=== PATIENT | male | born 1960 | race Caucasian/White ===

== ENCOUNTER → 2016-10-28 | Outpatient (CLI) | payer BC, OTHER ==
[2016-10-28 08:41] LABS: CHLORIDE,CL 104 mmol/L (98-110); SODIUM,NA 142 mmol/L (136-146)
== END | disposition home or self-care (01) ==
LOC: MW.CHFP 07:46
PROVIDERS: ATTEND Student in an Organized Health Care Education/Training Program
DX: R73.9 Hyperglycemia, unspecified (principal); I10 Essential (primary) hypertension; E78.00 Pure hypercholesterolemia, unspecified
CPT/HCPCS: 36415; 80053; 80061

== ENCOUNTER 2017-01-17 08:18 | Day surgery (SDC) | payer OTHER ==
[~2017-01-17 08:18] MED LIST: Lactated Ringers 1,000 ML IV SCH
--- NOTE | 2017-01-17 08:54 | PCM.PREANE ---
Preanesthetic Assessment - Anesthesia/Transfusion/Family Hx Anesthesia History: Prior Anesthesia Without Reaction Family History of Anesthesia Reaction: No Transfusion History: No Prior Transfusion(s) Intubation History: Unknown - Review of Systems General: No Symptoms Pulmonary: No Symptoms Cardiovascular: No Symptoms Gastrointestinal: Constipation, Other (screening colonoscopy) Neurological: No Symptoms Other: Reports: None - Physical Assessment Height: 1.77 m Weight: 124.284 kg ASA Class: 2 Mental Status: Alert & Oriented x3 Airway Class: Mallampati = 2 Dentition: Reports: Normal Dentition Thyro-Mental Finger Breadths: 2 Mouth Opening Finger Breadths: 3 ROM/Head Extension: Full Lungs: Clear to Auscultation, Normal Respiratory Effort Cardiovascular: Regular Rate, Regular Rhythm - Allergies Allergies/Adverse Reactions: Allergies Allergy/AdvReac Type Severity Reaction Status Date / Time No Known Allergies Allergy Verified 11/24/14 18:36 - Blood Blood Available: No - Anesthesia Plan Pre-Op Medication Ordered: None - Acknowledgements Anesthesia Type Planned: MAC Pt an Appropriate Candidate for the Planned Anesthesia: Yes Alternatives and Risks of Anesthesia Discussed w Pt/Guardian: Yes Pt/Guardian Understands and Agrees with Anesthesia Plan: Yes PreAnesthesia Questionnaire HEENT History: Reports: Other (See Below) Other HEENT History: chronic sinus drainage Cardiovascular History: Reports: High Cholesterol, Hypertension Psychiatric History: Reports: Anxiety, Depression Endocrine/Metabolic History: Reports: Obesity/BMI 30+ - Past Surgical History Head Surgeries/Procedures: Reports: None HEENT Surgical History: Reports: Oral Surgery, Tonsillectomy - SUBSTANCE USE Smoking Status *Q: Never Smoker Second Hand Smoke Exposure: Yes Days Per Week of Alcohol Use: 0 Recreational Drug Use History: No - HOME MEDS Home Medications: Home Meds Hydrochlorothiazide 25 mg PO DAILY 11/24/14 [History] Metoprolol Succinate [Toprol XL] 25 mg PO DAILY 11/24/14 [History] amLODIPine [Norvasc] 10 mg PO DAILY 11/24/14 [History] atorvaSTATin [Lipitor] 20 mg PO BEDTIME 11/24/14 [History] [place]-3S/DHA/Epa/Fish Oil [Fish Oil Dr 1,000 mg Softgel] 1 tab PO DAILY [History] - CURRENT (IN HOUSE) MEDS Current Meds: Current Medications Lactated Ringer's (Ringers, Lactated) 1,000 mls @ 125 mls/hr IV ASDIRECTED AMA Last Admin: 01/17/17 08:40 Dose: 125 mls/hr
[2017-01-17] MEDS ORDERED: Midazolam 1 MG/ML 2 ML SDV ONE (09:33)
[2017-01-17] MEDS ORDERED: Propofol 200 MG/20 ML SDV ONE ×2 (09:33→09:45)
[2017-01-17] MEDS ORDERED: fentaNYL 100 MCG/2 ML SDV ONE (09:59)
--- NOTE | 2017-01-17 10:49 | PCM.OPNOTE ---
- General Post-Op/Procedure Note Date of Surgery/Procedure: 01/17/17 Operative Procedure(s): Colonoscopy Pre Op Diagnosis: Desire for colorectal cancer screening Post-Op Diagnosis: No evidence of neoplasia Anesthesia Technique: MAC (ASA II) Primary Surgeon: Al Aldana Condition: Good Free Text/Narrative:: Dictation [id number] CPT CODE [id number]
--- NOTE | 2017-01-17 10:56 | PCM.POSTAN ---
POST ANESTHESIA ASSESSMENT - MENTAL STATUS Mental Status: Alert - RESPIRATORY Respiratory Status: respiratory rate WNL, Airway Patent, O2 Saturation Stable - CARDIOVASCULAR CV Status: Pulse Rate WNL, Blood Pressure Stable - GASTROINTESTINAL GI Status: No Symptoms - PAIN Pain Score: 0 - POST OP HYDRATION Hydration Status: Adequate & Stable - OBSERVATIONS Free Text/Narrative:: no anesthesia problems
[2017-01-17] MEDS ORDERED: Lactated Ringers 1,000 ML IV SCH (11:00)
[2017-01-17 11:33] VITALS: BP 115/79
--- NOTE | 2017-01-17 12:00 | OR ---
SURGEON: Al Aldana M.D. DATE OF PROCEDURE: 01/17/2017 OPERATION PERFORMED: Colonoscopy. ANESTHESIA: MAC. ASA CLASSIFICATION: II. PREOPERATIVE DIAGNOSIS: Desire for colorectal cancer screening. POSTOPERATIVE DIAGNOSIS: No evidence of neoplasia. DESCRIPTION OF PROCEDURE: The patient was taken to the endoscopy room and positioned on the endoscopy table in the left lateral decubitus position. Time-out was called for appropriate identification of the patient and procedure. Monitored anesthesia care was provided. The colonoscope was inserted into the rectum and advanced with moderate difficulty to the cecum. The cecum was identified by internal landmarks and external pressure. The colonoscope was retroflexed in the cecum to visualize the ascending colon from below, then straightened, and slowly withdrawn. The cecum, ascending colon, hepatic flexure, transverse colon, splenic flexure, descending colon, sigmoid colon, and rectum were very well visualized. No tumors, polyps, diverticula, or angiodysplastic changes were noted. There was no evidence of inflammatory bowel disease. Once the colonoscope was withdrawn to the rectum, it was retroflexed to visualize the anal orifice from above. No tumors, polyps, or acute hemorrhoidal changes were noted. The colonoscope was then straightened, the rectum aspirated, and the colonoscope removed. The patient tolerated the procedure well and was taken to recovery room in stable condition. BECCA RODRÍGUEZ /[id number]
== END 2017-01-17 11:20 | disposition home or self-care (01) ==
LOC: MW.SDS 08:18
PROVIDERS: ATTEND Surgery
PROC: 0DJD8ZZ Inspection of Lower Intestinal Tract, Via Natural or Artificial Opening Endoscopic (ICD-10-PCS; principal; 2017-01-17)
DX: Z12.11 Encounter for screening for malignant neoplasm of colon (principal); R53.82 Chronic fatigue, unspecified; I10 Essential (primary) hypertension; E78.00 Pure hypercholesterolemia, unspecified; E66.01 Morbid (severe) obesity due to excess calories; Z79.899 Other long term (current) drug therapy; Z68.41 Body mass index [BMI] 40.0-44.9, adult; Z90.89 Acquired absence of other organs; Z98.890 Other specified postprocedural states
CPT/HCPCS: 45378; J2250; J3010; J7120; 00810; J2704

== ENCOUNTER 2017-07-11 17:44 | Emergency (ER) | payer SELFPAY ==
--- NOTE | 2017-07-11 18:00 | EDM.PDOC ---
ED HPI GENERAL MEDICAL PROBLEM - General Chief Complaint: ENT Problem Stated Complaint: TOOTHACHE Time Seen by Provider: 07/11/17 17:50 - History of Present Illness INITIAL COMMENTS - FREE TEXT/NARRATIVE: HISTORY AND PHYSICAL: History of present illness: Patient's 57-year-old white male sensory concern of dental pain he is scheduled have 2 teeth extracted on Mondays currently on Augmentin and ibuprofen he denies fever chills nausea vomiting or other complaints Review of systems: As per history of present illness and below otherwise all systems reviewed and negative. Past medical history: As per history of present illness and as reviewed below otherwise noncontributory. Surgical history: As per history of present illness and as reviewed below otherwise noncontributory. Social history: No reported history of drug or alcohol abuse. Family history: As per history of present illness and as reviewed below otherwise noncontributory. Physical exam: HEENT: Atraumatic, normocephalic, pupils reactive, negative for conjunctival pallor or scleral icterus, mucous membranes moist, throat clear, neck supple, nontender, trachea midline. Generally poor dentition multiple dental caries with secondary dental fractures noted he's got some right left lower swelling in the region of the mandible Lungs: Clear to auscultation, breath sounds equal bilaterally, chest nontender. Heart: S1S2, regular, negative for clicks, rubs, or JVD. Abdomen: Soft, nondistended, nontender. Negative for masses or hepatosplenomegaly. Negative for costovertebral tenderness. Pelvis: Stable nontender. Genitourinary: Deferred. Rectal: Deferred. Extremities: Atraumatic, negative for cords or calf pain. Neurovascular unremarkable. Neuro: Awake, alert, oriented. Cranial nerves II through XII unremarkable. Cerebellum unremarkable. Motor and sensory unremarkable throughout. Exam nonfocal. Diagnostics: None Therapeutics: dental balls Impression: #1 dentalgia #2 multiple dental caries #3 dental abscess Definitive disposition and diagnosis as appropriate pending reevaluation and review of above. - Related Data Allergies Allergy/AdvReac Type Severity Reaction Status Date / Time No Known Allergies Allergy Verified 07/11/17 17:59 Home Meds: Home Meds Hydrochlorothiazide 25 mg PO DAILY 11/24/14 [History] Metoprolol Succinate [Toprol XL] 25 mg PO DAILY 11/24/14 [History] amLODIPine [Norvasc] 10 mg PO DAILY 11/24/14 [History] atorvaSTATin [Lipitor] 20 mg PO BEDTIME 11/24/14 [History] [place]-3S/DHA/Epa/Fish Oil [Fish Oil Dr 1,000 mg Softgel] 1 tab PO DAILY [History] Amoxicillin/Potassium Clav [Augmentin 875-125 Tablet] 07/11/17 [History] Ibuprofen 07/11/17 [History] Water Pill 07/11/17 [History] Past Medical History HEENT History: Reports: Other (See Below) Other HEENT History: chronic sinus drainage Cardiovascular History: Reports: High Cholesterol, Hypertension Psychiatric History: Reports: Anxiety, Depression Endocrine/Metabolic History: Reports: Obesity/BMI 30+ - Past Surgical History Head Surgeries/Procedures: Reports: None HEENT Surgical History: Reports: Oral Surgery, Tonsillectomy Social & Family History - Tobacco Use Smoking Status *Q: Never Smoker Second Hand Smoke Exposure: Yes - Caffeine Use Caffeine Use: Reports: Soda - Alcohol Use Days Per Week of Alcohol Use: 0 - Recreational Drug Use Recreational Drug Use: No ED ROS GENERAL - Review of Systems Review Of Systems: ROS reveals no pertinent complaints other than HPI. ED EXAM, GENERAL - Physical Exam Exam: See Below (See dictation) Departure - Departure Time of Disposition: 17:59 Disposition: Home, Self-Care 01 Condition: Good Clinical Impression: Dentalgia, Dental caries - Discharge Information Referrals: Sean Myles MD [Primary Care Provider] - Additional Instructions: The following information is given to patients seen in the emergency department who are being discharged to home. This information is to outline your options for follow-up care. We provide all patients seen in our emergency department with a follow-up referral. The need for follow-up, as well as the timing and circumstances, are variable depending upon the specifics of your emergency department visit. If you don't have a primary care physician on staff, we will provide you with a referral. We always advise you to contact your personal physician following an emergency department visit to inform them of the circumstance of the visit and for follow-up with them and/or the need for any referrals to a consulting specialist. The emergency department will also refer you to a specialist when appropriate. This referral assures that you have the opportunity for followup care with a specialist. All of these measure are taken in an effort to provide you with optimal care, which includes your followup. Under all circumstances we always encourage you to contact your private physician who remains a resource for coordinating your care. When calling for followup care, please make the office aware that this follow-up is from your recent emergency room visit. If for any reason you are refused follow-up, please contact the [facility] emergency department at and asked to speak to the emergency department charge nurse. Continue Augmentin and Motrin as prescribed dental balls as directed Ultram as prescribed keep scheduled dentist appointment return as needed as discussed
[2017-07-11] MEDS ORDERED: Benzocaine 20% Topical Spray UD MUCMEM ONE (18:05)
[2017-07-11] MEDS ORDERED: Lidocaine 2% Viscous Solution 15 ML Cup PO ONE (18:05)
[2017-07-11 18:57] VITALS: BP 167/89
== END 2017-07-11 18:06 | disposition home or self-care (01) ==
LOC: MW.ED 17:44
DX: K04.7 Periapical abscess without sinus (principal); K03.81 Cracked tooth; K02.9 Dental caries, unspecified; I10 Essential (primary) hypertension; E78.00 Pure hypercholesterolemia, unspecified; F32.9 Major depressive disorder, single episode, unspecified; Z77.22 Contact with and (suspected) exposure to environmental tobacco smoke (acute) (chronic); Z79.899 Other long term (current) drug therapy
CPT/HCPCS: 99283; A9270

== ENCOUNTER 2017-11-14 01:50 | Emergency (ER) | payer OTHER ==
--- NOTE | 2017-11-14 01:55 | EDM.PDOC ---
ED HPI GENERAL MEDICAL PROBLEM - General Chief Complaint: Chest Pain Stated Complaint: CHEST PAIN Time Seen by Provider: 11/14/17 01:53 Source of Information: Reports: Patient - History of Present Illness INITIAL COMMENTS - FREE TEXT/NARRATIVE: HISTORY AND PHYSICAL: History of present illness: Patient presents by private vehicle [ Patient presents with complaint of back and shoulder pain 10 out of 10 but awoke him from sleep or developed shortly after waking up tonight no radiation arm neck or jaw not associated with shortness breath or diaphoresis. Pain is worsened with left arm movement and turning his head, I can reproduce symptoms with forward extension of his arm No fever nausea vomiting chills sweats no shortness breath headache dizziness or palpitation no bowel or urine symptoms History of hypertension Review of systems: As per history of present illness and below otherwise all systems reviewed and negative. Past medical history: As per history of present illness and as reviewed below otherwise noncontributory. Surgical history: As per history of present illness and as reviewed below otherwise noncontributory. Social history: No reported history of drug or alcohol abuse. Family history: As per history of present illness and as reviewed below otherwise noncontributory. Physical exam: HEENT: Atraumatic, normocephalic, pupils reactive, negative for conjunctival pallor or scleral icterus, mucous membranes moist, throat clear, neck supple, nontender, trachea midline. Lungs: Clear to auscultation, breath sounds equal bilaterally, chest nontender. Heart: S1S2, regular, negative for clicks, rubs, or JVD. Abdomen: Soft, nondistended, nontender. Negative for masses or hepatosplenomegaly. Negative for costovertebral tenderness. Pelvis: Stable nontender. Genitourinary: Deferred. Rectal: Deferred. Extremities: Atraumatic, negative for cords or calf pain. Neurovascular unremarkable. Neuro: Awake, alert, oriented. Cranial nerves II through XII unremarkable. Cerebellum unremarkable. Motor and sensory unremarkable throughout. Exam nonfocal. Diagnostics: [CBC CMP UA INR troponin lipase EKG Chest 1 view] Therapeutics: [1 L normal saline bolus Aspirin 324 mg chewable-patient had taken 4 to 5--3/25 milligram aspirin prior to arrival hence the 324 mg chewable or not provided ] Lopressor 5 mg IV Nitroglycerin 0.4 sublingualEvery 5 minutes when necessary-not provided as patient has 0 out of 10 chest pain Patient is offered observation admission for telemetry and following cardiac enzymes he refuses stating he does not want to spend the money on an admission Impression: [a typical chest pain Muscle spasm] Definitive disposition and diagnosis as appropriate pending reevaluation and review of above. Chest Pain Score (Numeric/FACES): 10 - Related Data Allergies Allergy/AdvReac Type Severity Reaction Status Date / Time No Known Allergies Allergy Verified 11/14/17 01:56 Home Meds: Home Meds Hydrochlorothiazide 25 mg PO DAILY 11/24/14 [History] Metoprolol Succinate [Toprol XL] 25 mg PO DAILY 11/24/14 [History] amLODIPine [Norvasc] 10 mg PO DAILY 11/24/14 [History] atorvaSTATin [Lipitor] 20 mg PO BEDTIME 11/24/14 [History] Water Pill 07/11/17 [History] Acetaminophen 1,000 mg PO DAILY 11/14/17 [History] Past Medical History HEENT History: Reports: Other (See Below) Other HEENT History: chronic sinus drainage Cardiovascular History: Reports: High Cholesterol, Hypertension Psychiatric History: Reports: Anxiety, Depression Endocrine/Metabolic History: Reports: Obesity/BMI 30+ - Past Surgical History Head Surgeries/Procedures: Reports: None HEENT Surgical History: Reports: Oral Surgery, Tonsillectomy Social & Family History - Family History Family Medical History: Noncontributory - Caffeine Use Caffeine Use: Reports: Soda ED ROS GENERAL - Review of Systems Review Of Systems: See Below ED EXAM, GENERAL - Physical Exam Exam: See Below Course - Vital Signs Last Recorded V/S: Last Vital Signs Temp 97.9 F 11/14/17 02:00 Pulse 77 11/14/17 02:29 Resp 18 11/14/17 02:00 BP 157/93 H 11/14/17 02:29 Pulse Ox 94 L 11/14/17 02:29 - Orders/Labs/Meds Orders: Active Orders 24 hr Category Date Time Status EKG Documentation Completion [RC] STAT Care 11/14/17 02:08 Active Chest 1V Frontal [CR] Stat Exams 11/14/17 02:08 Taken UA W/MICROSCOPIC [URIN] Stat Lab 11/14/17 02:07 Ordered Nitroglycerin [Nitrostat] Med 11/14/17 01:57 Active 0.4 mg SL Q5M PRN Sodium Chloride 0.9% [Normal Saline] 1,000 ml Med 11/14/17 01:56 Active IV STAT Medication Orders Sodium Chloride (Normal Saline) 1,000 mls @ 999 mls/hr IV STAT ONE Stop: 11/14/17 02:56 Last Admin: 11/14/17 02:20 Dose: 999 mls/hr Nitroglycerin (Nitrostat) 0.4 mg SL Q5M PRN PRN Reason: Chest Pain Labs: Laboratory Tests 11/14/17 11/14/17 11/14/17 Range/Units 02:06 02:06 02:06 WBC 9.29 (4.0-11.0) K/uL RBC 4.95 (4.50-5.90) M/uL Hgb 15.9 (13.0-17.0) g/dL Hct 45.6 (38.0-50.0) % MCV 92.1 (80.0-98.0) fL MCH 32.1 H (27.0-32.0) pg MCHC 34.9 (31.0-37.0) g/dL RDW Std Deviation 46.6 (28.0-62.0) fl RDW Coeff of Judah 14 (11.0-15.0) % Plt Count 286 (150-400) K/uL MPV 10.50 (7.40-12.00) fL Neut % (Auto) 58.6 (48.0-80.0) % Lymph % (Auto) 28.2 (16.0-40.0) % [place] % (Auto) 11.0 (0.0-15.0) % Eos % (Auto) 2.0 (0.0-7.0) % Baso % (Auto) 0.2 (0.0-1.5) % Neut # (Auto) 5.4 (1.4-5.7) K/uL Lymph # (Auto) 2.6 H (0.6-2.4) K/uL [place] # (Auto) 1.0 H (0.0-0.8) K/uL Eos # (Auto) 0.2 (0.0-0.7) K/uL Baso # (Auto) 0.0 (0.0-0.1) K/uL Nucleated RBC % 0.0 /100WBC Nucleated RBCs # 0 K/uL INR 0.99 Sodium 142 (136-148) mmol/L Potassium 3.1 L (3.5-5.1) mmol/L Chloride 105 (98-107) mmol/L Carbon Dioxide 32.5 H (21.0-32.0) mmol/L BUN 14 (7.0-18.0) mg/dL Creatinine 1.3 (0.8-1.3) mg/dL Est Cr Clr Drug Dosing 57.26 mL/min Estimated GFR (MDRD) 57.1 ml/min Glucose 103 (74-106) mg/dL Calcium 9.1 (8.5-10.1) mg/dL Total Bilirubin 0.5 (0.2-1.0) mg/dL AST 26 (15-37) IU/L ALT 37 (14-63) IU/L Alkaline Phosphatase 89 (46-116) U/L Troponin I < 0.050 (0.000-0.056) ng/mL Total Protein 7.7 (6.4-8.2) g/dL Albumin 3.8 (3.4-5.0) g/dL Globulin 3.9 H (2.0-3.5) g/dL Albumin/Globulin Ratio 1.0 L (1.3-2.8) Lipase 229 (73-393) U/L Urine Color Urine Appearance Urine pH (5.0-8.0) Ur Specific [place] (1.001-1.035) Urine Protein (NEGATIVE) mg/dL Urine Glucose (UA) (NEGATIVE) mg/dL Urine Ketones (NEGATIVE) mg/dL Urine Occult Blood (NEGATIVE) Urine Nitrite (NEGATIVE) Urine Bilirubin (NEGATIVE) Urine Urobilinogen (<2.0) EU/dL Ur Leukocyte Esterase (NEGATIVE) Urine RBC (0-2/HPF) Urine WBC (0-5/HPF) Ur Epithelial Cells (NONE-FEW) Amorphous Sediment (NEGATIVE) Urine Bacteria (NEGATIVE) 11/14/17 Range/Units 02:07 WBC (4.0-11.0) K/uL RBC (4.50-5.90) M/uL Hgb (13.0-17.0) g/dL Hct (38.0-50.0) % MCV (80.0-98.0) fL MCH (27.0-32.0) pg MCHC (31.0-37.0) g/dL RDW Std Deviation (28.0-62.0) fl RDW Coeff of [place] (11.0-15.0) % Plt Count (150-400) K/uL MPV (7.40-12.00) fL Neut % (Auto) (48.0-80.0) % Lymph % (Auto) (16.0-40.0) % [place] % (Auto) (0.0-15.0) % Eos % (Auto) (0.0-7.0) % Baso % (Auto) (0.0-1.5) % Neut # (Auto) (1.4-5.7) K/uL Lymph # (Auto) (0.6-2.4) K/uL [place] # (Auto) (0.0-0.8) K/uL Eos # (Auto) (0.0-0.7) K/uL Baso # (Auto) (0.0-0.1) K/uL Nucleated RBC % /100WBC Nucleated RBCs # K/uL INR Sodium (136-148) mmol/L Potassium (3.5-5.1) mmol/L Chloride (98-107) mmol/L Carbon Dioxide (21.0-32.0) mmol/L BUN (7.0-18.0) mg/dL Creatinine (0.8-1.3) mg/dL Est Cr Clr Drug Dosing mL/min Estimated GFR (MDRD) ml/min Glucose (74-106) mg/dL Calcium (8.5-10.1) mg/dL Total Bilirubin (0.2-1.0) mg/dL AST (15-37) IU/L ALT (14-63) IU/L Alkaline Phosphatase (46-116) U/L Troponin I (0.000-0.056) ng/mL Total Protein (6.4-8.2) g/dL Albumin (3.4-5.0) g/dL Globulin (2.0-3.5) g/dL Albumin/Globulin Ratio (1.3-2.8) Lipase (73-393) U/L Urine Color YELLOW Urine Appearance SLT CLOUDY Urine pH 7.0 (5.0-8.0) Ur Specific [place] 1.010 (1.001-1.035) Urine Protein NEGATIVE (NEGATIVE) mg/dL Urine Glucose (UA) NEGATIVE (NEGATIVE) mg/dL Urine Ketones NEGATIVE (NEGATIVE) mg/dL Urine Occult Blood NEGATIVE (NEGATIVE) Urine Nitrite NEGATIVE (NEGATIVE) Urine Bilirubin NEGATIVE (NEGATIVE) Urine Urobilinogen 0.2 (<2.0) EU/dL Ur Leukocyte Esterase NEGATIVE (NEGATIVE) Urine RBC 0-3 (0-2/HPF) Urine WBC 0-1 (0-5/HPF) Ur Epithelial Cells RARE (NONE-FEW) Amorphous Sediment MANY (NEGATIVE) Urine Bacteria FEW (NEGATIVE) Meds: Medications Generic Name Dose Route Start Last Admin Trade Name Freq PRN Reason Stop Dose Admin Sodium Chloride 1,000 mls @ 999 mls/hr 11/14/17 01:56 11/14/17 02:20 Normal Saline IV 11/14/17 02:56 999 mls/hr STAT ONE Administration Nitroglycerin 0.4 mg 11/14/17 01:57 Nitrostat SL Q5M PRN Chest Pain Discontinued Medications Generic Name Dose Route Start Last Admin Trade Name Freq PRN Reason Stop Dose Admin Aspirin 324 mg 11/14/17 01:56 11/14/17 02:28 Aspirin PO 11/14/17 01:57 Not Given ONETIME ONE Metoprolol Tartrate 5 mg 11/14/17 01:57 11/14/17 02:20 Lopressor IVPUSH 11/14/17 01:58 5 mg NOW STA Administration Departure - Departure Time of Disposition: 02:52 Disposition: Home, Self-Care 01 Condition: Good Clinical Impression: Muscle spasm, Atypical chest pain Clinical Impression: (Ruled Out): Chest pain - Discharge Information Referrals: PCP,None [Primary Care Provider] - Forms: ED Department Discharge Additional Instructions: The following information is given to patients seen in the emergency department who are being discharged to home. This information is to outline your options for follow-up care. We provide all patients seen in our emergency department with a follow-up referral. The need for follow-up, as well as the timing and circumstances, are variable depending upon the specifics of your emergency department visit. If you don't have a primary care physician on staff, we will provide you with a referral. We always advise you to contact your personal physician following an emergency department visit to inform them of the circumstance of the visit and for follow-up with them and/or the need for any referrals to a consulting specialist. The emergency department will also refer you to a specialist when appropriate. This referral assures that you have the opportunity for follow-up care with a specialist. All of these measure are taken in an effort to provide you with optimal care, which includes your follow-up. Under all circumstances we always encourage you to contact your private physician who remains a resource for coordinating your care. When calling for follow-up care, please make the office aware that this follow-up is from your recent emergency room visit. If for any reason you are refused follow-up, please contact the [facility] emergency department at and asked to speak to the emergency department charge nurse. - My Orders Last 24 Hours: My Active Orders 11/14/17 01:56 Sodium Chloride 0.9% [Normal Saline] 1,000 ml IV STAT 11/14/17 01:57 Nitroglycerin [Nitrostat] 0.4 mg SL Q5M PRN 11/14/17 02:07 UA W/MICROSCOPIC [URIN] Stat 11/14/17 02:08 EKG Documentation Completion [RC] STAT Chest 1V Frontal [CR] Stat - Assessment/Plan Last 24 Hours: My Active Orders 11/14/17 01:56 Sodium Chloride 0.9% [Normal Saline] 1,000 ml IV STAT 11/14/17 01:57 Nitroglycerin [Nitrostat] 0.4 mg SL Q5M PRN 11/14/17 02:07 UA W/MICROSCOPIC [URIN] Stat 11/14/17 02:08 EKG Documentation Completion [RC] STAT Chest 1V Frontal [CR] Stat
[2017-11-14] MEDS ORDERED: Sodium Chloride 0.9% 1,000 ML IV ONE (01:56)
[2017-11-14] MEDS ORDERED: Aspirin 81 MG Tab.Chew PO ONE (01:56)
[2017-11-14] MEDS ORDERED: Metoprolol Tartrate 5 MG/5 ML SDV IVPUSH STA (01:57)
[2017-11-14] MEDS ORDERED: Nitroglycerin 0.4 MG Tab.SL SL PRN (01:57)
[2017-11-14 02:38] LABS: CHLORIDE,CL 105 mmol/L (98-107); SODIUM,NA 142 mmol/L (136-148)
[2017-11-14 03:17] VITALS: BP 164/78
--- NOTE | 2017-11-14 17:26 | CR ---
EXAM DATE: 11/14/17 PATIENT'S AGE: 57 Patient: MALATHI PURVIS Facility: [place], [place] Site . Site : [id number] Study: XRay Chest [id number]/25/2018 2:23:12 AM Ordering Physician: Uriah Guaman Final Report: Indication: Chest pain. SOB. Hypertension Technique: Chest 1 view Comparison: None Findings/Impression: Cardiovascular and mediastinum: Cardiomegaly. A mildly unfolded aorta. Lungs and pleural space: An underexposed study. No definite consolidation or pleural effusions. Left perihilar nodular opacities could represent vessels. Recommend followup. Bones and soft tissues: No significant findings. Dictated by Ismael Mccollum MD @ 11/14/2017 2:57:05 AM Dictated by: Ismael Mccollum MD @ 11/14/2017 02:57:13 (Electronic Signature) Report Signed by Proxy. [email or web address]
== END 2017-11-14 03:18 | disposition home or self-care (01) ==
LOC: MW.ED 01:50
DX: R07.89 Other chest pain (principal); M62.838 Other muscle spasm; E78.00 Pure hypercholesterolemia, unspecified; I10 Essential (primary) hypertension; Z79.899 Other long term (current) drug therapy
CPT/HCPCS: 36415; 71045; 80053; 81001; 83690; 84484; 85025; 85610; 93005; 96361; 96374; 99285; J7040

== ENCOUNTER 2017-12-08 05:17 | Emergency (ER) | payer OTHER ==
--- NOTE | 2017-12-08 06:12 | EDM.PDOC ---
ED HPI GENERAL MEDICAL PROBLEM - General Chief Complaint: Upper Extremity Injury/Pain Stated Complaint: LEFT ARM PAIN Time Seen by Provider: 12/08/17 06:11 Source of Information: Reports: Patient - History of Present Illness INITIAL COMMENTS - FREE TEXT/NARRATIVE: HISTORY AND PHYSICAL: History of present illness: [Patient complains of left elbow pain 8 out of 10 with movement 1 out of 10 at rest, he denies history of trauma No fever nausea vomiting chills sweats no chest pain shortness breath headache dizziness palpitation no bowel or urine symptoms Nice history of gout Review of systems: As per history of present illness and below otherwise all systems reviewed and negative. Past medical history: As per history of present illness and as reviewed below otherwise noncontributory. Surgical history: As per history of present illness and as reviewed below otherwise noncontributory. Social history: No reported history of drug or alcohol abuse. Family history: As per history of present illness and as reviewed below otherwise noncontributory. Physical exam: HEENT: Atraumatic, normocephalic, pupils reactive, negative for conjunctival pallor or scleral icterus, mucous membranes moist, throat clear, neck supple, nontender, trachea midline. Lungs: Clear to auscultation, breath sounds equal bilaterally, chest nontender. Heart: S1S2, regular, negative for clicks, rubs, or JVD. Abdomen: Soft, nondistended, nontender. Negative for masses or hepatosplenomegaly. Negative for costovertebral tenderness. Pelvis: Stable nontender. Genitourinary: Deferred. Rectal: Deferred. Extremities: Atraumatic, negative for cords or calf pain. Neurovascular unremarkable. Left elbow no redness warmth or swelling but painful with movement of the joint Neuro: Awake, alert, oriented. Cranial nerves II through XII unremarkable. Cerebellum unremarkable. Motor and sensory unremarkable throughout. Exam nonfocal. Diagnostics: [Left elbow plain films CBC uric acid ] Therapeutics: [Indocin Bactrim DS ] Impression: [Left elbow pain ] Definitive disposition and diagnosis as appropriate pending reevaluation and review of above. L elbow Pain Score (Numeric/FACES): 10 - Related Data Allergies Allergy/AdvReac Type Severity Reaction Status Date / Time No Known Allergies Allergy Verified 12/08/17 05:26 Home Meds: Home Meds Hydrochlorothiazide 25 mg PO DAILY 11/24/14 [History] Metoprolol Succinate [Toprol XL] 25 mg PO DAILY 11/24/14 [History] amLODIPine [Norvasc] 10 mg PO DAILY 11/24/14 [History] atorvaSTATin [Lipitor] 20 mg PO BEDTIME 11/24/14 [History] Water Pill 07/11/17 [History] Acetaminophen 1,000 mg PO DAILY 11/14/17 [History] Past Medical History HEENT History: Reports: Other (See Below) Other HEENT History: chronic sinus drainage Cardiovascular History: Reports: High Cholesterol, Hypertension Respiratory History: Reports: None Gastrointestinal History: Reports: None Genitourinary History: Reports: None Musculoskeletal History: Reports: None Neurological History: Reports: None Psychiatric History: Reports: Anxiety, Depression Endocrine/Metabolic History: Reports: Obesity/BMI 30+ Immunologic History: Reports: None Oncologic (Cancer) History: Reports: None Dermatologic History: Reports: None - Infectious Disease History Infectious Disease History: Reports: Chicken Pox - Past Surgical History Head Surgeries/Procedures: Reports: None HEENT Surgical History: Reports: Oral Surgery, Tonsillectomy GI Surgical History: Reports: Colonoscopy Social & Family History - Family History Family Medical History: Noncontributory - Tobacco Use Smoking Status *Q: Never Smoker - Caffeine Use Caffeine Use: Reports: Tea - Recreational Drug Use Recreational Drug Use: No Review of Systems - Review of Systems Review Of Systems: See Below ED EXAM, GENERAL - Physical Exam Exam: See Below Course - Vital Signs Last Recorded V/S: Last Vital Signs Temp 98.0 F 12/08/17 05:24 Pulse 117 H 12/08/17 05:24 Resp 16 12/08/17 05:24 BP 141/87 H 12/08/17 05:24 Pulse Ox 95 12/08/17 05:24 - Orders/Labs/Meds Orders: Active Orders 24 hr Category Date Time Status Elbow Min 3V Lt [CR] Stat Exams 12/08/17 05:30 Taken Labs: Laboratory Tests 12/08/17 12/08/17 Range/Units 05:46 05:46 WBC 13.09 H (4.0-11.0) K/uL RBC 4.96 (4.50-5.90) M/uL Hgb 16.1 (13.0-17.0) g/dL Hct 46.1 (38.0-50.0) % MCV 92.9 (80.0-98.0) fL MCH 32.5 H (27.0-32.0) pg MCHC 34.9 (31.0-37.0) g/dL RDW Std Deviation 46.9 (28.0-62.0) fl RDW Coeff of Judah 14 (11.0-15.0) % Plt Count 252 (150-400) K/uL MPV 10.90 (7.40-12.00) fL Neut % (Auto) 76.9 (48.0-80.0) % Lymph % (Auto) 14.1 L (16.0-40.0) % Becker % (Auto) 7.9 (0.0-15.0) % Eos % (Auto) 0.9 (0.0-7.0) % Baso % (Auto) 0.2 (0.0-1.5) % Neut # (Auto) 10.1 H (1.4-5.7) K/uL Lymph # (Auto) 1.8 (0.6-2.4) K/uL Becker # (Auto) 1.0 H (0.0-0.8) K/uL Eos # (Auto) 0.1 (0.0-0.7) K/uL Baso # (Auto) 0.0 (0.0-0.1) K/uL Nucleated RBC % 0.0 /100WBC Nucleated RBCs # 0 K/uL Uric Acid 6.4 (2.6-7.2) mg/dL Departure - Departure Time of Disposition: 06:42 Disposition: Home, Self-Care 01 Condition: Good Clinical Impression: Elbow pain, left - Discharge Information Referrals: Sean Myles MD [Primary Care Provider] - Forms: ED Department Discharge Additional Instructions: The following information is given to patients seen in the emergency department who are being discharged to home. This information is to outline your options for follow-up care. We provide all patients seen in our emergency department with a follow-up referral. The need for follow-up, as well as the timing and circumstances, are variable depending upon the specifics of your emergency department visit. If you don't have a primary care physician on staff, we will provide you with a referral. We always advise you to contact your personal physician following an emergency department visit to inform them of the circumstance of the visit and for follow-up with them and/or the need for any referrals to a consulting specialist. The emergency department will also refer you to a specialist when appropriate. This referral assures that you have the opportunity for follow-up care with a specialist. All of these measure are taken in an effort to provide you with optimal care, which includes your follow-up. Under all circumstances we always encourage you to contact your private physician who remains a resource for coordinating your care. When calling for follow-up care, please make the office aware that this follow-up is from your recent emergency room visit. If for any reason you are refused follow-up, please contact the [facility] emergency department at and asked to speak to the emergency department charge nurse. - My Orders Last 24 Hours: My Active Orders 12/08/17 05:30 Elbow Min 3V Lt [CR] Stat - Assessment/Plan Last 24 Hours: My Active Orders 12/08/17 05:30 Elbow Min 3V Lt [CR] Stat
[2017-12-08 06:43] VITALS: BP 133/83
--- NOTE | 2017-12-08 16:51 | CR ---
EXAM DATE: 12/08/17 PATIENT'S AGE: 57 Patient: MALATHI PURVIS Facility: [place], [place] Site . Site : [id number] Study: XRay Extremity Left ELBOW [id number]/18/2018 6:02:06 AM Ordering Physician: Doctor Macedo Final Report: INDICATION: Pain. No known injury. TECHNIQUE: Three views of the left elbow. FINDINGS: No fracture, dislocation, erosion, or intrinsic skeletal lesion. No effusion identified. IMPRESSION: Negative left elbow. Dictated by Vahe Pettit MD @ 12/08/2017 6:08:12 AM Dictated by: Vahe Pettit MD @ 12/08/2017 06:08:18 (Electronic Signature) Report Signed by Proxy. KALE
== END 2017-12-08 06:50 | disposition home or self-care (01) ==
LOC: MW.ED 05:17
DX: M25.522 Pain in left elbow (principal); I10 Essential (primary) hypertension; E66.9 Obesity, unspecified; Z79.899 Other long term (current) drug therapy
CPT/HCPCS: 36415; 73080-26-LT; 73080-LT; 84550; 85025; 93005; 99282; 99283

== ENCOUNTER 2023-09-26 07:24 | Emergency (ER) | payer OTHER ==
[2023-09-26] MEDS: Sodium Chloride 0.9% 2.5 ML Syringe FLUSH PRN (07:59)
[2023-09-26] MEDS: Sodium Chloride 0.9% 10 ML Syringe FLUSH PRN (07:59)
[2023-09-26 08:00] LABS: BASOPHILS ABSOLUTE AUTO 0.03 K/uL (0.00-0.20); BASOPHILS PERCENT AUTO 0.3 % (0.0-1.0); EOSINOPHILS ABSOLUTE AUTO 0.07 K/uL (0.00-0.45); EOSINOPHILS PERCENT AUTO 0.8 % (0.0-6.0); HEMATOCRIT 48.2 % (42.0-52.0); HEMOGLOBIN 16.7 g/dL (14.0-18.0); IMMATURE GRAN ABSOLUTE AUTO 0.03 K/uL (0.00-0.05); IMMATURE GRAN PERCENT AUTO 0.3 % (0.0-0.4); LYMPHOCYTES ABSOLUTE AUTO 1.77 K/uL (1.00-4.80); LYMPHOCYTES PERCENT AUTO 20.6 % (24.0-44.0); MEAN CORPUSCULAR HEMOGLOBIN 31.3 pg (28.0-32.0); MEAN CORPUSCULAR HGB CONC 34.6 g/dL (32.0-36.0); MEAN CORPUSCULAR VOLUME 90.4 fL (83.0-99.0); MEAN PLATELET VOLUME 9.6 fL (9.4-12.4); NEUTROPHILS ABSOLUTE AUTO 6.11 K/uL (1.80-7.70); PLATELET COUNT,PLT 224 K/uL (150-400); RED BLOOD CELL COUNT 5.33 M/uL (4.52-5.90); WHITE BLOOD CELL COUNT,WBC 8.61 K/uL (3.9-11.3)
[2023-09-26] MEDS: Ondansetron 4 MG/2 ML SDV IVPUSH ONE (08:07)
[2023-09-26 08:27] LABS: A/G RATIO 1.1 (0.9-1.6); ALBUMIN 4.1 g/dL (3.4-5.0); BILIRUBIN TOTAL 0.5 mg/dL (0.2-1.0); CALCIUM 9.3 mg/dL (8.5-10.1); EST CRCL DRUG DOSING (CG) 69.12 mL/min; POTASSIUM,K 3.6 mmol/L (3.5-5.1); PROTEIN TOTAL,TP 7.8 g/dL (6.4-8.2)
[2023-09-26 08:30] LABS: LACTIC ACID 1.5 mmol/L (0.4-2.0)
[2023-09-26 08:42] LABS: APPEARANCE,URINE CLEAR; BILIRUBIN,URINE NEGATIVE (NEGATIVE); COLOR,URINE STRAW; GLUCOSE,URINE NEGATIVE (NEGATIVE); KETONES,URINE NEGATIVE (NEGATIVE); LEUKOCYTE ESTERASE,URINE NEGATIVE (NEGATIVE); NITRITE,URINE NEGATIVE (NEGATIVE); OCCULT BLOOD,URINE TRACE-INTACT (NEGATIVE); PH,URINE 7.5 (5.0-8.0); PROTEIN,URINE NEGATIVE (NEGATIVE); UROBILINOGEN,URINE 0.2 EU/dL (<2.0)
[2023-09-26 08:58] LABS: BACTERIA,URINE NOT SEEN (NEGATIVE); EPITHELIAL CELLS,URINE NOT SEEN (NONE-FEW); WBC,URINE 0-1 (0-5/HPF)
[2023-09-26] MEDS: Iopamidol 755 MG/ML 500 ML Multipack Bottle IVPUSH STA (09:06)
[2023-09-26] MEDS: Aluminum Hydroxide/Magnesium Hydroxide/Simethicone XS Susp 30 ML Cup PO ONE (09:22)
[2023-09-26] MEDS: Aspirin 81 MG Tab.Chew PO ONE (09:22)
[2023-09-26 12:47] VITALS: BP 134/90; PULSE 93
== END 2023-09-26 12:47 | disposition home or self-care (01) ==
LOC: MW.ED 07:24
DX: K80.20 Calculus of gallbladder without cholecystitis without obstruction (principal); I10 Essential (primary) hypertension; I25.10 Atherosclerotic heart disease of native coronary artery without angina pectoris; E78.00 Pure hypercholesterolemia, unspecified; E66.9 Obesity, unspecified; Z68.36 Body mass index [BMI] 36.0-36.9, adult; Z79.899 Other long term (current) drug therapy; Z75.8 Other problems related to medical facilities and other health care; Z95.5 Presence of coronary angioplasty implant and graft
CPT/HCPCS: 36415; 74177; 76705; 80053; 81001; 83605; 83690; 84484; 85025; 93005; 96374; 99284; A9270; J2405; J3490; Q9967; 93010

== ENCOUNTER 2023-10-13 23:30 | Emergency (ER) | payer SELFPAY ==
[2023-10-13] MEDS: Ketorolac 30 MG/ML SDV IVPUSH ONE (23:56)
[2023-10-14 00:10] LABS: BASOPHILS ABSOLUTE AUTO 0.02 K/uL (0.00-0.20); BASOPHILS PERCENT AUTO 0.1 % (0.0-1.0); HEMATOCRIT 46.2 % (42.0-52.0); HEMOGLOBIN 16.2 g/dL (14.0-18.0); IMMATURE GRAN ABSOLUTE AUTO 0.05 K/uL (0.00-0.05); IMMATURE GRAN PERCENT AUTO 0.3 % (0.0-0.4); LYMPHOCYTES ABSOLUTE AUTO 0.73 K/uL (1.00-4.80); LYMPHOCYTES PERCENT AUTO 4.5 % (24.0-44.0); MEAN CORPUSCULAR HEMOGLOBIN 31.4 pg (28.0-32.0); MEAN CORPUSCULAR HGB CONC 35.1 g/dL (32.0-36.0); MEAN CORPUSCULAR VOLUME 89.5 fL (83.0-99.0); MONOCYTES ABSOLUTE AUTO 1.01 K/uL (0.00-0.80); MONOCYTES PERCENT AUTO 6.2 % (0.0-8.0); NEUTROPHILS ABSOLUTE AUTO 14.59 K/uL (1.80-7.70); NEUTROPHILS PERCENT AUTO 88.9 % (41.0-71.0); PLATELET COUNT,PLT 317 K/uL (150-400); RED BLOOD CELL COUNT 5.16 M/uL (4.52-5.90)
[2023-10-14 01:00] LABS: A/G RATIO 0.9 (0.9-1.6); ALBUMIN 3.7 g/dL (3.4-5.0); CALCIUM 9.3 mg/dL (8.5-10.1); CARBON DIOXIDE,CO2 26.7 mmol/L (21.0-32.0); EST CRCL DRUG DOSING (CG) 69.12 mL/min; POTASSIUM,K 3.7 mmol/L (3.5-5.1); PROTEIN TOTAL,TP 7.6 g/dL (6.4-8.2)
[2023-10-14 01:20] LABS: BILIRUBIN TOTAL 4.8 mg/dL (0.2-1.0)
[2023-10-14] MEDS: Piperacillin/Tazobactam 4.5 GM in Sodium Chloride 0.9% 100 ML IV ONE (02:06)
[2023-10-14 05:24] VITALS: BP 136/71; PULSE 67
[2023-10-14] MEDS: Ondansetron 4 MG/2 ML SDV IVPUSH ONE (05:53)
== END 2023-10-14 06:16 ==
LOC: MW.ED 23:30
DX: K80.20 Calculus of gallbladder without cholecystitis without obstruction (principal); E80.6 Other disorders of bilirubin metabolism; R94.5 Abnormal results of liver function studies; I10 Essential (primary) hypertension; Z79.82 Long term (current) use of aspirin
CPT/HCPCS: 36415; 76705; 80053; 83690; 85025; 96365; 96375; 99285; J1885; J2405; J2543; J3490

== ENCOUNTER 2023-10-20 21:13 | Emergency (ER) | payer OTHER ==
[2023-10-20 22:01] VITALS: BP 126/65; PULSE 95
== END 2023-10-20 22:00 | disposition home or self-care (01) ==
LOC: MW.ED 21:13
DX: Z48.00 Encounter for change or removal of nonsurgical wound dressing (principal); I10 Essential (primary) hypertension; E66.9 Obesity, unspecified; Z79.82 Long term (current) use of aspirin; Z75.8 Other problems related to medical facilities and other health care; Z68.27 Body mass index [BMI] 27.0-27.9, adult
CPT/HCPCS: 99283